=== PATIENT | female | born 1970 | race Two or more races ===

== ENCOUNTER 2019-09-02 02:44 | Inpatient (IN) | payer BC ==
[2019-09-02 02:57] VITALS: BMI 45.7
--- NOTE | 2019-09-02 03:37 | PDOC ---
Attending Attestation - Resident Resident Name: Hitesh Freed - ED Attending Attestation I have performed the following: I have examined & evaluated the patient, The case was reviewed & discussed with the resident, I agree w/resident's findings & plan - HPI HPI: 09/02/19 06:56 see resident hpi - Physicial Exam PE: 09/02/19 06:57 see resident exam - Medical Decision Making 09/02/19 06:57 49-year-old female with intermittent tingling to the left arm as well as blurred vision on and off throughout the day On reevaluation patient's blood pressure is decreased to 156/98 and symptoms are largely resolved CT scan of the brain showed no acute abnormality Patient took 81 mg of aspirin prior to arrival, the remainder to complete 324 mg to be given We will admit to medical service for further evaluation for possible TIA/hypertensive emergency Neurology consulted by admitting team, call placed from the ER, pending callback at the time of signout NIH scale remains at 0 Discharge - Discharge Information Problems reviewed: Yes Clinical Impression/Diagnosis: Hypertension, Paresthesia Condition: Stable - Follow up/Referral - Patient Discharge Instructions - Post Discharge Activity
--- NOTE | 2019-09-02 03:48 | PDOC ---
History of Present Illness - General Chief Complaint: Blood Pressure Problem Stated Complaint: BLOOD PRESSURE PROBLEM Time Seen by Provider: 09/02/19 03:06 History Source: Patient - History of Present Illness Initial Comments: 09/02/19 03:36 49F w/hx HTN p/w one day of L arm tingling, vision blurring, and difficulty controlling blood pressure. She reports that her BP at home as been to the 180s/110s. She takes HCTZ 12.5 mg daily. She reports taking her usual dose this morning, and an additional dose 3 hours prior to arrival due to her HTN. She reports mild ongoing RUE tingling, alongside ongoing vision blurring. tPA Exclusion checklist 3-4.5h - Time Elapsed Date last known well: 08/31/19 Time last known well: 23:00 Elaspsed time: 1 Day(s) and 6 Hour(s) and 13 Minutes - Thrombolytic Therapy Candidate Is patient eligible for thrombolytic therapy: No - Exclusion Criteria 3-4.5 hr SBP greater than 185 or DBP greater than 110mmHg despite tx: No Recent IC/spinal surgery,head trauma or stroke<3mos.: No Hx IC hemorrhage, IC neoplasm, AV malformation or aneurysm: No Active internal bleeding: No Blding diathesis(low plt ct, inc PTT,INR>1.7 or use of NOAC): No Symptoms suggest subarachnoid hemorrhage: No CT demonstrates multilobar infarct(>1/3 cerebral hemiphere): No Arterial puncture at noncompressible site in previous 7 days: No Blood glucose concentration less than 50mg/dL (2.7mmol/L): No - Ineligibility reason(s) Reasons No tPA given: Outside of window - delayed arrival NIH Stroke Scale - Last Known Well Date/Time & Onset Date Last Known Well: 08/31/19 Time Last Known Well: 23:00 - Initial Evaluation Level of consciousness: Alert Ask patient the month and their age: Answers both correctly Ask patient to open & close eyes; make fist and let go: Obeys both correctly Best gaze (horizontal eye movement): Normal Visual field testing: No visual field loss Facial paresis (Show teeth/raise eyebrows/close eyes tight): Normal symmetrical movement Motor Function: Left Arm: Normal Motor Function: Right Arm: Normal (extends arm 90 (or 45) degrees for 10 seconds without drift Motor Function: Left Leg: Normal (extends leg 30 degrees for 5 seconds without drift) Motor Function: Right Leg: Normal (extends leg 30 degrees for 5 seconds without drift) Limb Ataxia: No ataxia Sensory(Use pinprick test arms,legs,trunk,face/side to side): Normal Best language (Describe picture, name items, read sentences): No Aphasia Dysarthria (read several words): Normal articulation Extinction and Inattention: No abnormality - Total Score NIH Stroke Scale Score: 0 Past History - Medical History Allergies/Adverse Reactions: Allergies Allergy/AdvReac Type Severity Reaction Status Date / Time latex Allergy Verified 09/02/19 02:58 - Psycho-Social/Smoking History Smoking History: Never smoked Information on smoking cessation initiated: No - Substance Abuse Hx (Audit-C & DAST Scrn) How often the patient has a drink containing alcohol: Monthly or less Number of drinks the patient has on a typical day: 1 or 2 Score: In Men: 4 or > Positive; In Women: 3 or > Positive: 1 Screen Result (Pos requires Nsg. Audit-10AR): Negative In the last yr the pt used illegal drug/Rx for NonMed reason: No Score: Yes response is considered Positive: 0 Screen Result (Positive result requires Nsg. DAST-10): Negative Review of Systems - Review of Systems Able to Perform ROS?: Yes Comments:: 09/02/19 03:52 GENERAL/CONSTITUTIONAL: No fever or chills. No weakness. HEAD, EYES, EARS, NOSE AND THROAT: Vision blurring. No ear pain or discharge. No sore throat. CARDIOVASCULAR: No chest pain or shortness of breath RESPIRATORY: No cough, wheezing, or hemoptysis. GASTROINTESTINAL: No nausea, vomiting, diarrhea or constipation. GENITOURINARY: No dysuria, frequency, or change in urination. MUSCULOSKELETAL: No joint or muscle swelling or pain. No neck or back pain. SKIN: No rash NEUROLOGIC: RUE tingling. No headache, vertigo, loss of consciousness, or other change in strength/sensation. ENDOCRINE: No increased thirst. No abnormal weight change HEMATOLOGIC/LYMPHATIC: No anemia, easy bleeding, or history of blood clots. ALLERGIC/IMMUNOLOGIC: No hives or skin allergy. *Physical Exam - Vital Signs Last Vital Signs Temp Pulse Resp BP Pulse Ox 98.3 F 92 H 20 189/99 H 100 09/02/19 02:54 09/02/19 02:54 09/02/19 02:54 09/02/19 02:54 09/02/19 02:54 - Physical Exam 09/02/19 05:15 GENERAL: Awake, alert, and fully oriented, in no acute distress HEAD: No signs of trauma, normocephalic, atraumatic EYES: PERRLA, EOMI, sclera anicteric, conjunctiva clear ENT: Auricles normal inspection, hearing grossly normal, nares patent, oropharynx clear without exudates. Moist mucosa NECK: Normal ROM, supple, no lymphadenopathy, JVD, or masses LUNGS: No distress, speaks full sentences, clear to auscultation bilaterally HEART: Regular rate and rhythm, normal S1 and S2, no murmurs, rubs or gallops, peripheral pulses normal and equal bilaterally. ABDOMEN: Soft, nontender, normoactive bowel sounds. No guarding, no rebound. No masses EXTREMITIES : Normal inspection, Normal range of motion, no edema. No clubbing or cyanosis NEUROLOGICAL: Cranial nerves II through XII grossly intact. Normal speech, normal gait, no focal sensorimotor deficits SKIN: Warm, Dry, normal turgor, no rashes or lesions noted ED Treatment Course - LABORATORY CBC & Chemistry Diagram: 09/02/19 03:31 09/02/19 03:32 - RADIOLOGY Radiology Studies Ordered: Category Date Time Status HEAD CT WITHOUT CONTRAST [CT] Stat CT Scan 09/02/19 03:31 Ordered Medical Decision Making - Medical Decision Making 09/02/19 05:15 49F w/hx HTN p/w one day of vision blurring, LUE tingling, without focal neuro deficits on exam, ambulating without difficulty. Ddx CVA, hypertensive emergen cy. Plan: CT Head CBC CMP EKG CXR PT/INR, APTT Dispo: Admit --- CT Head - negative for acute process Discharge - Discharge Information Problems reviewed: Yes Clinical Impression/Diagnosis: Hypertensive urgency Condition: Stable - Admission Yes - Follow up/Referral - Patient Discharge Instructions - Post Discharge Activity
[2019-09-02 04:11] LABS: URINE APPEARANCE CLEAR; URINE BILIRUBIN NEGATIVE (NEGATIVE); URINE COLOR YELLOW; URINE GLUCOSE (UA) NEGATIVE (NEGATIVE); URINE KETONE NEGATIVE (NEGATIVE); URINE LEUK ESTERASE NEGATIVE (NEGATIVE); URINE NITRITE NEGATIVE (NEGATIVE); URINE PROTEIN NEGATIVE (NEGATIVE); URINE UROBILINOGEN 0.2 mg/dL (0.2-1.0)
[2019-09-02 04:14] LABS: BASO % 1.4 % (0-2.0); EOS % 1.6 % (0-4.5); HEMATOCRIT 42.2 % (32.4-45.2); HEMOGLOBIN 13.9 GM/dL (10.7-15.3); LYMPH % 30.4 % (8-40); MCH 29.9 pg (25.7-33.7); MEAN CELL VOLUME 90.8 fl (80-96); MEAN PLT VOLUME 9.1 fl (7.5-11.1); MONO % 13.7 % (3.8-10.2); NEUT % 52.9 % (42.8-82.8); PLATELET COUNT 290 K/MM3 (134-434); RBC 4.65 M/mm3 (3.60-5.2); RDW 14.4 % (11.6-15.6); WHITE BLOOD COUNT 7.6 K/mm3 (4.0-10.0)
[2019-09-02 04:33] LABS: ALBUMIN 4.3 g/dl (3.4-5.0); BILIRUBIN,TOTAL 0.6 mg/dL (0.2-1); BLOOD UREA NITROGEN 8.7 mg/dL (7-18); N-TERMINAL BNP 22.8 pg/ml (5-125); POTASSIUM 4.9 mmol/L (3.5-5.1); TOT PROT 8.1 g/dl (6.4-8.2)
[2019-09-02 04:35] LABS: CREATININE 1.1 mg/dL (0.55-1.3)
[2019-09-02 04:53] LABS: ACTIVATED PTT 35.1 SECONDS (25.2-36.5); INR 1.03 (0.83-1.09); PROTHROMBIN TIME (PATIENT) 12.1 SEC (9.7-13.0)
--- NOTE | 2019-09-02 05:51 | HP ---
CHIEF COMPLAINT:left arm tingling/weakness, blurry vision and elevated blood pressure PCP:none HISTORY OF PRESENT ILLNESS: This is a 49 year old obese female with a past medical history of hypertension (on HCTZ 12.5 mg daily) who presents with symptoms of one day of left arm tingling/weakness, blurry vision, and difficulty controlling blood pressure with SBP over 200's. She reports she took her usual dose yesterday,and an additional dose 3 hours prior to arrival due to her high blood pressure. Upon workup in the ER CT scan of head and laboratory findings were unremarkable as per ER physician. She reports she had an echocardiogram in the past 6 months and was told it was normal. She reports she has not been eating foods high in sodium and she reports medication compliance. She continues to report left arm tingling and with no other neurological deficits on exam. She denies chest pain, shortn ess of breath or headache. SBP is in the 150's at this time. She reported her mother had a recent mild CVA and has a positive family history of CVA in her family. Recent Travel: no PAST MEDICAL HISTORY: hypertension obesity PAST SURGICAL HISTORY: none Social History: Smoking:no Alcohol:no Drugs: no Family History Grandmother + stroke Mother- has dementia, + mini stroke recently in her 70's Allergies latex Allergy (Verified 09/02/19 02:58) HOME MEDICATIONS: hydrochlorthiazide 12.5 mg daily REVIEW OF SYSTEMS CONSTITUTIONAL: Absent: fever, chills, diaphoresis, generalized weakness, malaise, loss of appetite, weight change HEENT: Absent: rhinorrhea, nasal congestion, throat pain, throat swelling, difficulty swallowing, mouth swelling, ear pain, eye pain, visual changes CARDIOVASCULAR: Absent: chest pain, syncope, palpitations, irregular heart rate, lightheadedness, peripheral edema RESPIRATORY: Absent: cough, shortness of breath, dyspnea with exertion, orthopnea, wheezing, stridor, hemoptysis GASTROINTESTINAL: Absent: abdominal pain, abdominal distension, nausea, vomiting, diarrhea, constipation, melena, hematochezia GENITOURINARY: Absent: dysuria, frequency, urgency, hesitancy, hematuria, flank pain, genital p ain MUSCULOSKELETAL: Absent: myalgia, arthralgia, joint swelling, back pain, neck pain SKIN: Absent: rash, itching, pallor HEMATOLOGIC/IMMUNOLOGIC: Absent: easy bleeding, easy bruising, lymphadenopathy, frequent infections ENDOCRINE: Absent: unexplained weight gain, unexplained weight loss, heat intolerance, cold intolerance NEUROLOGIC: Absent: headache, LUE weakness/tingling ,blurry vision, paresthesias, dizziness, unsteady gait, seizure, mental status changes, bladder or bowel incontinence PSYCHIATRIC: Absent: anxiety, depression, suicidal or homicidal ideation, hallucinations. PHYSICAL EXAMINATION Vital Signs - 24 hr 09/02/19 02:54 Temperature 98.3 F Pulse Rate 92 H Respiratory 20 Rate Blood Pressure 189/99 H O2 Sat by Pulse 100 Oximetry (%) General no acute distress Vital signs reviewed SBP 150's Neuro awake alert and oriented to person place and time moving upper and lower extremities speech clear no facial grimace bilateral hand grasp present Lungs CTA nonlabored breathing effort no rales no wheezing Heart s1s2 rate regular Abdomen soft nontender nondistended Extremities warm to touch no pitting edema no cyanosis Skin nail beds and lips pink Mood calm Laboratory Results - last 24 hr 09/02/19 09/02/19 09/02/19 03:31 03:32 03:32 WBC 7.6 RBC 4.65 Hgb 13.9 Hct 42.2 MCV 90.8 MCH 29.9 MCHC 33.0 RDW 14.4 Plt Count 290 MPV 9.1 Absolute Neuts (auto) 4.0 Neutrophils % 52.9 Lymphocytes % 30.4 Monocytes % 13.7 H Eosinophils % 1.6 Basophils % 1.4 Nucleated RBC % 0 PT with INR INR PTT (Actin FS) Sodium 136 Potassium 4.9 Chloride 100 Carbon Dioxide 27 Anion Gap 8 BUN 8.7 Creatinine 1.1 Est GFR (CKD-EPI)AfAm 69.24 Est GFR (CKD-EPI)NonAf 59.74 POC Glucometer Random Glucose 87 Calcium 10.0 Total Bilirubin 0.6 AST 41 H ALT 31 Alkaline Phosphatase 75 Troponin I < 0.02 B-Natriuretic Peptide 22.8 Total Protein 8.1 Albumin 4.3 Serum , Qual Urine Color Urine Appearance Urine pH Ur Specific [place] Urine Protein Urine Glucose (UA) Urine Ketones Urine Blood Urine Nitrite Urine Bilirubin Urine Urobilinogen Ur Leukocyte Esterase 09/02/19 09/02/19 09/02/19 03:35 03:53 04:02 WBC RBC Hgb Hct MCV MCH MCHC RDW Plt Count MPV Absolute Neuts (auto) Neutrophils % Lymphocytes % Monocytes % Eosinophils % Basophils % Nucleated RBC % PT with INR INR PTT (Actin FS) Sodium Potassium Chloride Carbon Dioxide Anion Gap BUN Creatinine Est GFR (CKD-EPI)AfAm Est GFR (CKD-EPI)NonAf POC Glucometer 87 Random Glucose Calcium Total Bilirubin AST ALT Alkaline Phosphatase Troponin I B-Natriuretic Peptide Total Protein Albumin Serum , Qual Negative Urine Color Yellow Urine Appearance Clear Urine pH 5.0 Ur Specific [place] 1.017 Urine Protein Negative Urine Glucose (UA) Negative Urine Ketones Negative Urine Blood Negative Urine Nitrite Negative Urine Bilirubin Negative Urine Urobilinogen 0.2 Ur Leukocyte Esterase Negative 09/02/19 04:23 WBC RBC Hgb Hct MCV MCH MCHC RDW Plt Count MPV Absolute Neuts (auto) Neutrophils % Lymphocytes % Monocytes % Eosinophils % Basophils % Nucleated RBC % PT with INR 12.10 INR 1.03 PTT (Actin FS) 35.1 Sodium Potassium Chloride Carbon Dioxide Anion Gap BUN Creatinine Est GFR (CKD-EPI)AfAm Est GFR (CKD-EPI)NonAf POC Glucometer Random Glucose Calcium Total Bilirubin AST ALT Alkaline Phosphatase Troponin I B-Natriuretic Peptide Total Protein Albumin Serum , Qual Urine Color Urine Appearance Urine pH Ur Specific [place] Urine Protein Urine Glucose (UA) Urine Ketones Urine Blood Urine Nitrite Urine Bilirubin Urine Urobilinogen Ur Leukocyte Esterase ASSESSMENT/PLAN: In summary this is a 49 year old obese female with a past medical history of hypertension who presents with symptoms of one day of left arm tingling/weakness, blurry vision, and difficulty controlling blood pressure with SBP over 200's. She presented with hypertensive urgency. She denies chest pain, shortness of breath or headache. Currently SBP is improved in the 150's. She remains symptomatic with left upper arm tingling. She is being admitted to [facility] for further neurological evaluation and blood pressure management. 1. Hypertensive Urgency improved discontinue HCTZ add amlodipine 5mg once daily low sodium diet 2. R/O CVA symptomatic with left arm tingling CT scan with no acute findings check MRA of brain W/WOC contrast good blood pressure control add asa therapy consider adding statin therapy Neurology- Dr. Hernandez consulted 3. R/O COVID(low suspicion) follow up on COVID swab(taken 09/01) maintain o2 sat >90% strict contact/droplet isolation precautions FEN no IVF indicated BMP daily low sodium diet DVT scd's Visit type - Emergency Visit Emergency Visit: Yes ED Registration Date: 09/02/19 Care time: The patient presented to the Emergency Department on the above date and was hospitalized for further evaluation of their emergent condition. - New Patient This patient is new to me today: Yes Date on this admission: 09/02/19 - Critical Care Critical Care patient: No
[2019-09-02] MEDS ORDERED: amLODIPine BESYLATE 5 MG TABLET (FP) PO SCH (10:00)
[2019-09-02] MEDS ORDERED: ASPIRIN COATED 81 MG TABLET.EC PO SCH (10:00)
[2019-09-02] MEDS ORDERED: amLODIPine BESYLATE 5 MG TABLET (FP) ONE (10:12)
[2019-09-02] MEDS ORDERED: ASPIRIN 81 MG CHEWABLE TABLETS ONE (10:12)
--- NOTE | 2019-09-02 10:36 | EKG ---
Test Reason : Blood Pressure : / mmHG Vent. Rate : 094 BPM Atrial Rate : 094 BPM P-R Int : 152 ms QRS Dur : 070 ms QT Int : 366 ms P-R-T Axes : 067 047 031 degrees QTc Int : 457 ms NORMAL SINUS RHYTHM RIGHT ATRIAL ENLARGEMENT BORDERLINE ECG NO PREVIOUS ECGS AVAILABLE Confirmed by Mahesh Plunkett MD ([id number]) on 09/02/2019 10:35:46 AM Referred By: Confirmed By:Mahesh Plunkett MD
--- NOTE | 2019-09-02 13:08 | PN ---
Physical Exam: SUBJECTIVE: Patient seen at the bedside in the ED. Patient is in no acute distress. She is still complaining of blurry vision. She no longer has any sensation of L sided tingling or weakness. BP done on L arm in ED bedside, 156/86. OBJECTIVE: Vital Signs Vital Signs Temperature 98 F 09/02/19 15:13 Pulse Rate 87 09/02/19 15:13 Respiratory Rate 18 09/02/19 15:13 Blood Pressure 140/84 09/02/19 15:13 O2 Sat by Pulse Oximetry (%) 98 09/02/19 15:13 GENERAL: The patient is awake, alert, and fully oriented, in no acute distress. Patient sitting up making conversation, had just eaten lunch. HEAD: Normal with no signs of trauma. EYES: PERRL, extraocular movements intact LUNGS: CTL BL HEART: Regular rate and rhythm, S1, S2 without murmur, rub or gallop. NEURO: No focal deficits noted, no upper extremity weakness, speech intact SKIN: Warm, dry, normal turgor, no rashes or lesions noted Laboratory Last Values WBC 7.6 K/mm3 (4.0-10.0) 09/02/19 03:31 RBC 4.65 M/mm3 (3.60-5.2) 09/02/19 03:31 Hgb 13.9 GM/dL (10.7-15.3) 09/02/19 03:31 Hct 42.2 % (32.4-45.2) 09/02/19 03:31 MCV 90.8 fl (80-96) 09/02/19 03:31 MCH 29.9 pg (25.7-33.7) 09/02/19 03:31 MCHC 33.0 g/dl (32.0-36.0) 09/02/19 03:31 RDW 14.4 % (11.6-15.6) 09/02/19 03:31 Plt Count 290 K/MM3 (134-434) 09/02/19 03:31 MPV 9.1 fl (7.5-11.1) 09/02/19 03:31 Absolute Neuts (auto) 4.0 K/mm3 (1.5-8.0) 09/02/19 03:31 Neutrophils % 52.9 % (42.8-82.8) 09/02/19 03:31 Lymphocytes % 30.4 % (8-40) 09/02/19 03:31 Monocytes % 13.7 % (3.8-10.2) H 09/02/19 03:31 Eosinophils % 1.6 % (0-4.5) 09/02/19 03:31 Basophils % 1.4 % (0-2.0) 09/02/19 03:31 Nucleated RBC % 0 % (0-0) 09/02/19 03:31 PT with INR 12.10 SEC (9.7-13.0) 09/02/19 04:23 INR 1.03 (0.83-1.09) 09/02/19 04:23 PTT (Actin FS) 35.1 SECONDS (25.2-36.5) 09/02/19 04:23 Sodium 136 mmol/L (136-145) 09/02/19 03:32 Potassium 4.9 mmol/L (3.5-5.1) 09/02/19 03:32 Chloride 100 mmol/L (98-107) 09/02/19 03:32 Carbon Dioxide 27 mmol/L (21-32) 09/02/19 03:32 Anion Gap 8 MMOL/L (8-16) 09/02/19 03:32 BUN 8.7 mg/dL (7-18) 09/02/19 03:32 Creatinine 1.1 mg/dL (0.55-1.3) 09/02/19 03:32 Est GFR (CKD-EPI)AfAm 69.24 09/02/19 03:32 Est GFR (CKD-EPI)NonAf 59.74 09/02/19 03:32 POC Glucometer 87 UNITS (80-120) 09/02/19 03:53 Random Glucose 87 mg/dL (74-106) 09/02/19 03:32 Calcium 10.0 mg/dL (8.5-10.1) 09/02/19 03:32 Total Bilirubin 0.6 mg/dL (0.2-1) 09/02/19 03:32 AST 41 U/L (15-37) H 09/02/19 03:32 ALT 31 U/L (13-61) 09/02/19 03:32 Alkaline Phosphatase 75 U/L (45-117) 09/02/19 03:32 Troponin I < 0.02 ng/ml (0.00-0.05) 09/02/19 03:32 B-Natriuretic Peptide 22.8 pg/ml (5-125) 09/02/19 03:32 Total Protein 8.1 g/dl (6.4-8.2) 09/02/19 03:32 Albumin 4.3 g/dl (3.4-5.0) 09/02/19 03:32 Triglycerides 213 mg/dL (0-150) H 09/02/19 03:32 Cholesterol 299 mg/dL (50-200) H 09/02/19 03:32 Total LDL Cholesterol 187 mg/dL (5-100) H 09/02/19 03:32 HDL Cholesterol 69 mg/dL (40-60) H 09/02/19 03:32 Serum , Qual Negative 09/02/19 03:35 Urine Color Yellow 09/02/19 04:02 Urine Appearance Clear 09/02/19 04:02 Urine pH 5.0 (5.0-8.0) 09/02/19 04:02 Ur Specific [place] 1.017 (1.010-1.035) 09/02/19 04:02 Urine Protein Negative (NEGATIVE) 09/02/19 04:02 Urine Glucose (UA) Negative (NEGATIVE) 09/02/19 04:02 Urine Ketones Negative (NEGATIVE) 09/02/19 04:02 Urine Blood Negative (NEGATIVE) 09/02/19 04:02 Urine Nitrite Negative (NEGATIVE) 09/02/19 04:02 Urine Bilirubin Negative (NEGATIVE) 09/02/19 04:02 Urine Urobilinogen 0.2 mg/dL (0.2-1.0) 09/02/19 04:02 Ur Leukocyte Esterase Negative (NEGATIVE) 09/02/19 04:02 Active Medications Generic Name Dose Route Start Last Admin Trade Name Freq PRN Reason Stop Dose Admin Amlodipine Besylate 5 mg 09/02/19 10:00 09/02/19 10:14 Norvasc - PO 5 mg DAILY [facility] Administration Aspirin 81 mg 09/02/19 10:00 09/02/19 10:14 Ecotrin - PO 81 mg DAILY [facility] Administration Atorvastatin Calcium 40 mg 09/02/19 22:00 Lipitor - PO [facility] ASSESSMENT/PLAN: In summary this is a 49 year old obese female with a past medical history of hypertension who presents with symptoms of one day of left arm tingling/weakness, blurry vision, and difficulty controlling blood pressure with SBP over 200's. She presented with hypertensive urgency. She denies chest pain, shortness of breath or headache. Currently SBP is improved in the 150's. She remains symptomatic with left upper arm tingling. She is being admitted to [facility] for further neurological evaluation and blood pressure management. 1. Hypertensive Urgency improved discontinue HCTZ amlodipine 5mg in AM, given another 5 mg in afternoon, will start amlodipine 10 mg tomorrow low sodium diet admit to floor for monitoring blurred vision and weakness likely secondary to Hypertensive Encephalopathy initial BP was high (189/99) patient BP has been progressively coming down 2. R/O CVA symptomatic with left arm tingling CT scan with no acute findings MRA of the brain: No focal gross stenosis, aneurysm, or any vascular malformation. good blood pressure control Started ASA 81 mg daily Lipitor 40 mg po daily started Neurology- Dr. Hernandez consulted and made aware of patient status 3. R/O COVID (low suspicion) follow up on COVID swab(taken 09/01) maintain o2 sat >90% strict contact/droplet isolation precautions FEN no IVF indicated BMP daily low sodium diet DVT scd's Visit type - Emergency Visit Emergency Visit: Yes ED Registration Date: 09/02/19 Care time: The patient presented to the Emergency Department on the above date and was hospitalized for further evaluation of their emergent condition. - New Patient This patient is new to me today: Yes Date on this admission: 09/12/19 - Critical Care Critical Care patient: No - Discharge Referral Referred to [facility] Med [facility].C.: Yes ATTENDING PHYSICIAN STATEMENT I saw and evaluated the patient. I reviewed the resident's note and discussed the case with the resident. I agree with the resident's findings and plan as documented. SUBJECTIVE: OBJECTIVE: ASSESSMENT AND PLAN:
--- NOTE | 2019-09-02 13:13 | PN ---
Teaching Attending Note Name of Resident: Nereyda Faust ATTENDING PHYSICIAN STATEMENT I reviewed the resident's note and discussed the case with the resident. I agree with the resident's findings and plan as documented. SUBJECTIVE: Patient improved with no acute distress. OBJECTIVE: Vital Signs Temperature 98.3 F 09/02/19 02:54 Pulse Rate 68 09/02/19 12:14 Respiratory Rate 16 09/02/19 12:14 Blood Pressure 138/82 09/02/19 12:14 O2 Sat by Pulse Oximetry (%) 100 09/02/19 12:14 Initial Vital Signs Temp Pulse Resp BP Pulse Ox 98.3 F 92 H 20 189/99 H 100 09/02/19 02:54 09/02/19 02:54 09/02/19 02:54 09/02/19 02:54 09/02/19 02:54 PE: per resident's note CBCD WBC 7.6 K/mm3 (4.0-10.0) 09/02/19 03:31 RBC 4.65 M/mm3 (3.60-5.2) 09/02/19 03:31 Hgb 13.9 GM/dL (10.7-15.3) 09/02/19 03:31 Hct 42.2 % (32.4-45.2) 09/02/19 03:31 MCV 90.8 fl (80-96) 09/02/19 03:31 MCHC 33.0 g/dl (32.0-36.0) 09/02/19 03:31 RDW 14.4 % (11.6-15.6) 09/02/19 03:31 Plt Count 290 K/MM3 (134-434) 09/02/19 03:31 MPV 9.1 fl (7.5-11.1) 09/02/19 03:31 CMP Sodium 136 mmol/L (136-145) 09/02/19 03:32 Potassium 4.9 mmol/L (3.5-5.1) 09/02/19 03:32 Chloride 100 mmol/L (98-107) 09/02/19 03:32 Carbon Dioxide 27 mmol/L (21-32) 09/02/19 03:32 Anion Gap 8 MMOL/L (8-16) 09/02/19 03:32 BUN 8.7 mg/dL (7-18) 09/02/19 03:32 Creatinine 1.1 mg/dL (0.55-1.3) 09/02/19 03:32 Random Glucose 87 mg/dL (74-106) 09/02/19 03:32 Calcium 10.0 mg/dL (8.5-10.1) 09/02/19 03:32 Total Bilirubin 0.6 mg/dL (0.2-1) 09/02/19 03:32 AST 41 U/L (15-37) H 09/02/19 03:32 ALT 31 U/L (13-61) 09/02/19 03:32 Alkaline Phosphatase 75 U/L (45-117) 09/02/19 03:32 Total Protein 8.1 g/dl (6.4-8.2) 09/02/19 03:32 Albumin 4.3 g/dl (3.4-5.0) 09/02/19 03:32 CARDIAC ENZYMES Troponin I < 0.02 ng/ml (0.00-0.05) 09/02/19 03:32 Current Medications Generic Name Dose Route Start Last Admin Trade Name Freq PRN Reason Stop Dose Admin Amlodipine Besylate 5 mg 09/02/19 10:00 09/02/19 10:14 Norvasc - PO 5 mg DAILY [facility] Administration Aspirin 81 mg 09/02/19 10:00 09/02/19 10:14 Ecotrin - PO 81 mg DAILY [facility] Administration Atorvastatin Calcium 40 mg 09/02/19 22:00 Lipitor - PO [facility] Home Medications Medication Instructions Recorded Hydrochlorothiazide [Hctz -] 1 cap PO DAILY 09/02/19 EKG: NSR, rate 94, SHELLY, QTc 457 CT of the brain without contrast: No lesion, no bleed MRA of the brain: No focal gross stenosis, aneurysm, or any vascular malformation. ASSESSMENT AND PLAN: This patient is a 49yof with a PMHx of hypertension who presents to the ED. with one day of left arm tingling/weakness, blurry vision, and elevated Blood pressured of SBP over 200's. Patient was admitted for Hypertensive Urgency with neurological symptoms r/o CVA. # Hypertensive Urgency: improved on Norvasc continue , will dc Hctz , low sodium diet # Numbness and tingling ; acute CVA was rulled out by MRI/MRA ; added aspirin and lipitor , fasting lipid profile , further w/u as an outpatient. # R/O COVID (low suspicion); follow the result DVT: scd's
[2019-09-02] MEDS ORDERED: amLODIPine BESYLATE 5 MG TABLET (FP) PO ONE (15:27)
[2019-09-02] MEDS ORDERED: amLODIPine BESYLATE 2.5 MG TABLET (FP) ONE (15:53)
[2019-09-02 17:36] VITALS: TEMP 98.7
--- NOTE | 2019-09-02 19:19 | CONSULT ---
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 9 mo h/o HTN- on HCTZ x 9 mos. Monitoring her BP on a regular basis. Yesterday (Saturday) awoke with numbness and weakness left arm. This waxed and waned "all day" with blurred vision. During the day her BP remained elevated and was 200/120 at 1 AM precipitating ED visit. CT of head (reviewed): Normal MR Angio of brain (reviewed): Normal. NB, however, MRI of brain was NOT performed! Now feels "back to normal: with BP 138/84 after amlodipine. AZCK: No bruits. Cor reg NEURO: MS/speech: normal CN II-XII: normal Motor: No drift or tremors, Normal strength, bulk, tone, reflexes and BARAK's. Toes downgoing Coord: No FTN Dystaxia Sensory: Normal. Romberg neg Gait: Normal IMP: Normal neurological exam Possible right cerebral TIA- improved SUGGEST: Agree with amlodipine 10mg, simvastatin and ASA 81 mg. Out patient Med f/u for BP control Out patient MRI and carotid duplex (R/O carotid dissection), Neuro f/u as out patient. Thank you very much, Christophe Hernandez MD
[2019-09-02 21:56] VITALS: BP 153/94; PULSE 99
[2019-09-02] MEDS ORDERED: ATORVASTATIN CA 40 MG TABLET (FP) PO SCH (22:00)
[2019-09-03] MEDS ORDERED: amLODIPine BESYLATE 10 MG TABLET (FP) PO SCH (10:00)
--- NOTE | 2019-09-03 11:43 | DS ---
Physical Exam: Patient left AMA from the emergency room last night. Minutes to complete discharge: 35 <Bobby Boo - Last Filed: 09/03/19 17:55> Physical Exam: SUBJECTIVE: Patient left AMA late last night. OBJECTIVE: Vital Signs Vital Signs - 24 hr 09/02/19 09/02/19 09/02/19 12:14 15:13 17:35 Temperature 98 F 98.7 F Pulse Rate [ 68 87 87 Right] Respiratory 16 18 16 Rate Blood Pressure 138/82 140/84 138/82 [Right] O2 Sat by Pulse 100 98 98 Oximetry (%) 09/02/19 09/02/19 21:00 21:55 Temperature Pulse Rate [ 99 H Right] Respiratory 20 Rate Blood Pressure 153/94 [Right] O2 Sat by Pulse 100 100 Oximetry (%) PHYSICAL EXAM Patient Left LABS Laboratory Results - last 24 hr 09/02/19 09/02/19 03:32 03:54 Hemoglobin A1c % 5.4 Triglycerides 213 H Cholesterol 299 H Total LDL Cholesterol 187 H HDL Cholesterol 69 H HOSPITAL COURSE: 49 year old obese female with a past medical history of hypertension who presents with symptoms of one day of left arm tingling/weakness, blurry vision, and difficulty controlling blood pressure with SBP over 200's. She presented with hypertensive urgency. While in the hospital patient was given 10 mg of Norvasc with improvement of BP. CT head was performed that came back negative for acute events. Brain MRI with MRA showed no evidence of stenosis, aneurysm, vascular malformations. Neuro was contacted and recommended Tele monitoring for hypertensive enchephalopathy and further BP monitoring for 24 hours. Patient left AMA last night. Date of Admission:09/02/19 Date of Discharge: 09/03/19 <Nereyda Faust - Last Filed: 09/12/19 14:40> Discharge Summary - Home Medications Comprehensive Discharge Medication List: Ambulatory Orders Amlodipine Besylate [Norvasc -] 10 mg PO DAILY #30 tablet 09/02/19 Aspirin 81 mg PO DAILY #30 tab.chew 09/02/19 Atorvastatin Ca [Lipitor] 40 mg PO HS #30 tablet 09/02/19 <Bobby Boo - Last Filed: 09/03/19 17:55> Problems reviewed: Yes - Home Medications Comprehensive Discharge Medication List: Ambulatory Orders Amlodipine Besylate [Norvasc -] 10 mg PO DAILY #30 tablet 09/02/19 Aspirin 81 mg PO DAILY #30 tab.chew 09/02/19 Atorvastatin Ca [Lipitor] 40 mg PO HS #30 tablet 09/02/19 <Nereyda Faust - Last Filed: 09/12/19 14:40> Reason For Visit: HYPERTENSIVE URGENCY Condition: Stable - Instructions Diet, Activity, Other Instructions: advised to continue daily aspirin norvasc 10mg daily and lipitor 40mg daily sent to pharmacy advised to follow up with PCP and neurology dr. vargas Disposition: AGAINST MEDICAL ADVICE This patient is new to me today: No Emergency Visit: Yes ED Registration Date: 09/02/19 Care time: The patient presented to the Emergency Department on the above date and was hospitalized for further evaluation of their emergent condition. Critical Care patient: No - Discharge Referral Referred to [facility] Med P.C.: No <Nereyda Faust - Last Filed: 09/12/19 14:40> ATTENDING PHYSICIAN STATEMENT I saw and evaluated the patient. I reviewed the resident's note and discussed the case with the resident. I agree with the resident's findings and plan as documented. SUBJECTIVE: OBJECTIVE: ASSESSMENT AND PLAN: <Bobby Boo - Last Filed: 09/03/19 17:55> ATTENDING PHYSICIAN STATEMENT I saw and evaluated the patient. I reviewed the resident's note and discussed the case with the resident. I agree with the resident's findings and plan as documented. SUBJECTIVE: OBJECTIVE: ASSESSMENT AND PLAN: <Nereyda Faust - Last Filed: 09/12/19 14:40>
== END 2019-09-02 22:49 | disposition left against medical advice (07) | DRG 305 ==
LOC: JER 02:44 → JERBED 04:43 → UNDOADMIN 04:43 → JERBED 18:17
PROVIDERS: ADMIT Internal Medicine; ATTEND Internal Medicine
DX: I16.0 Hypertensive urgency (principal); Z68.42 Body mass index [BMI] 45.0-49.9, adult; G45.9 Transient cerebral ischemic attack, unspecified; R20.2 Paresthesia of skin; H53.8 Other visual disturbances; E66.01 Morbid (severe) obesity due to excess calories
CPT/HCPCS: 36415; 70450-TC; 70544-TC; 80053; 80061; 81003; 82962; 83036; 83721; 83880; 84484; 84703; 85025; 85610; 85730; 87086; 93005; 93010; 99285-25; U0003